=== PATIENT | male | born 1985 | race Hispanic/Latino ===

== ENCOUNTER 2019-05-26 10:25 | Emergency (ER) | payer OTHER ==
[2019-05-26] MEDS ORDERED: IPRATROPIUM/ALBUTEROL SULFATE 3 ML SOLUTION IH ONE (11:00)
== END 2019-05-26 12:14 | disposition home or self-care (01) ==
LOC: EDH 10:25
DX: J20.9 Acute bronchitis, unspecified (principal); J45.909 Unspecified asthma, uncomplicated
CPT/HCPCS: 71045; 84484; 87804; 87880; 93005; 94640